=== PATIENT | female | born 1995 | race Caucasian/White ===

== ENCOUNTER 2021-03-08 09:46 | Emergency (ER) | payer BC ==
[2021-03-08] MEDS ORDERED: Ondansetron 4 MG/2 ML SDV IVPUSH ONE (10:56)
[2021-03-08] MEDS ORDERED: Sodium Chloride 0.9% 10 ML Syringe FLUSH PRN (10:56)
[2021-03-08] MEDS ORDERED: HYDROmorphone 0.5 MG/0.5 ML Syringe IVPUSH ONE (10:56)
--- NOTE | 2021-03-08 12:08 | EDM.PDOC ---
ED HPI GENERAL MEDICAL PROBLEM - General Chief Complaint: Abdominal Pain Stated Complaint: ABDOMINAL PAIN Time Seen by Provider: 03/08/21 10:34 Source of Information: Reports: Patient History Limitations: Reports: No Limitations - History of Present Illness INITIAL COMMENTS - FREE TEXT/NARRATIVE: 25-year-old female presents the emergency department today with complaints of lower back and hip pain for the past 2 weeks and development of lower abdominal pain which started last evening. She states this a.m. she became slightly nauseated. She states she has not had any vomiting or diarrhea. She states she did have the chills last evening. She denies any sore throat, headache, cough or shortness of breath. She states that she has had progressively worsening low back pain that started approximately 2 weeks ago. 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 She states she has continued to lift despite the low back discomfort which has progressively worsened. She also complains of back pain that radiates around into her hip flexors bilaterally. She states she went to see her chiropractor this morning who did do x-rays. Upon his evaluation she had mention she had abdominal discomfort so we sent her to the emergency department to rule out gallbladder or appendix issues. She denies any urinary symptoms such as frequency, urgency or burning. States she is otherwise healthy. States she has been taking Aleve for the discomfort however it has not helped much for her back pain. Pelvic Pain Score (Numeric/FACES): 8 - Related Data Allergies Allergy/AdvReac Type Severity Reaction Status Date / Time No Known Allergies Allergy Verified 03/08/21 10:30 Home Meds: Home Meds Hydrocodone/Acetaminophen [HYDROcodone-Acetaminophen 5-325 MG] 1 each PO Q4H PRN #14 tab 03/08/21 [Rx] Past Medical History Psychiatric History: Reports: Anxiety Social & Family History - Tobacco Use Tobacco Use Status *Q: Never Tobacco User ED ROS GENERAL - Review of Systems Review Of Systems: Comprehensive ROS is negative, except as noted in HPI. ED EXAM, GI/ABD - Physical Exam Exam: See Below Exam Limited By: No Limitations General Appearance: Alert, WD/WN, Moderate Distress Eyes: Bilateral: Normal Appearance Ears: Normal External Exam, Hearing Grossly Normal Nose: Normal Inspection Throat/Mouth: Normal Inspection, Normal Lips, Normal Voice, No Airway Compromise Head: Atraumatic, Normocephalic Neck: Normal Inspection, Supple Respiratory/Chest: No Respiratory Distress, Lungs Clear, Normal Breath Sounds, No Accessory Muscle Use, Chest Non-Tender Cardiovascular: Normal Peripheral Pulses, Regular Rate, Rhythm, No Edema, No Murmur GI/Abdominal Exam: Normal Bowel Sounds, Soft, No Distention, Tender (In all 4 quadrants with palpation) (Female) Exam: Deferred Rectal (Female) Exam: Deferred Back Exam: Normal Inspection, Vertebral Tenderness (Thoracic and lumbar spine) Extremities: Normal Inspection, Non-Tender, No Pedal Edema, Normal Capillary Refill, Limited Range of Motion (Limited passive range of motion to bilateral lower extremities due to severe low back discomfort) Neurological: Alert, Oriented, Normal Cognition Psychiatric: Normal Affect, Normal Mood Skin Exam: Warm, Dry, Intact, Normal Color, No Rash Course - Vital Signs Text/Narrative:: As stated above, patient presents with worsening low back discomfort. Patient was seen and evaluated by her chiropractor this morning and was sent to the emergency department due to complaints of abdominal discomfort. Physical exam reveals an uncomfortable appearing female. Heart lung sounds are unremarkable. Abdomen is appreciative of bowel tones in all 4 quadrants. Slight abdominal tenderness noted to all 4 quadrants with palpation. Patient lying flat on her back with passive range of motion on the right leg elicits significant low back pain on the left side radiating around into her hip flexors and lower abdomen. Passive range of motion of the left leg elicits severe pain to the low back radiating around the right side into the right hip flexor and abdomen. Will obtain lab studies to include CBC, CMP, magnesium level and a C-reactive protein. We also obtain a urinalysis with micro and culture if indicated. We will place a saline lock in the patient and medicate her with Dilaudid and Zofran for pain. Last Recorded V/S: Last Vital Signs Temp 98.4 F 03/08/21 10:27 Pulse 53 L 03/08/21 10:27 Resp 16 03/08/21 10:27 BP 107/68 03/08/21 10:27 Pulse Ox 98 03/08/21 10:27 - Orders/Labs/Meds Orders: Active Orders 24 hr Category Date Time Status Sodium Chloride 0.9% [Saline Flush] Med 03/08/21 10:56 Active 10 ml FLUSH ASDIRECTED PRN Saline Lock Insert [OM.PC] Stat Oth 03/08/21 10:56 Ordered Medication Orders Sodium Chloride (Sodium Chloride 0.9% 10 Ml Syringe) 10 ml FLUSH ASDIRECTED PRN PRN Reason: Keep Vein Open Last Admin: 03/08/21 12:39 Dose: 10 ml Documented by: PATO Labs: Laboratory Tests 03/08/21 03/08/21 03/08/21 Range/Units 11:37 11:37 11:37 WBC 7.91 (3.98-10.04) K/mm3 RBC 4.17 (3.98-5.22) M/mm3 Hgb 13.1 (11.2-15.7) gm/dl Hct 40.4 (34.1-44.9) % MCV 96.9 H (79.4-94.8) fl MCH 31.4 (25.6-32.2) pg MCHC 32.4 (32.2-35.5) g/dl RDW Std Deviation 39.9 (36.4-46.3) fL Plt Count 289 (182-369) K/mm3 MPV 9.2 L (9.4-12.3) fl Neut % (Auto) 74.9 H (34.0-71.1) % Lymph % (Auto) 13.5 L (19.3-51.7) % [place] % (Auto) 9.6 (4.7-12.5) % Eos % (Auto) 1.3 (0.7-5.8) Baso % (Auto) 0.6 (0.1-1.2) % Neut # (Auto) 5.92 (1.56-6.13) K/mm3 Lymph # (Auto) 1.07 L (1.18-3.74) K/mm3 [place] # (Auto) 0.76 H (0.24-0.36) K/mm3 Eos # (Auto) 0.10 (0.04-0.36) K/mm3 Baso # (Auto) 0.05 (0.01-0.08) K/mm3 Sodium 142 (136-145) mEq/L Potassium 4.5 (3.5-5.1) mEq/L Chloride 106 (98-107) mEq/L Carbon Dioxide 27 (21-32) mEq/L Anion Gap 13.5 (5-15) BUN 17 (7-18) mg/dL Creatinine 0.8 (0.55-1.02) mg/dL Est Cr Clr Drug Dosing TNP Estimated GFR (MDRD) > 60 (>60) mL/min BUN/Creatinine Ratio 21.3 H (14-18) Glucose 95 (70-99) mg/dL Calcium 8.7 (8.5-10.1) mg/dL Magnesium 1.7 L (1.8-2.4) mg/dL Total Bilirubin 0.4 (0.2-1.0) mg/dL AST 17 (15-37) U/L ALT 28 (14-59) U/L Alkaline Phosphatase 51 (46-116) U/L C-Reactive Protein <0.2 (<1.0) mg/dL Total Protein 6.5 (6.4-8.2) g/dl Albumin 4.0 (3.4-5.0) g/dl Globulin 2.5 gm/dL Albumin/Globulin Ratio 1.6 (1-2) Urine Color Yellow (Yellow) Urine Appearance Clear (Clear) Urine pH 7.0 (5.0-8.0) Ur Specific [place] 1.025 (1.005-1.030) Urine Protein 1+ H (Negative) Urine Glucose (UA) Negative (Negative) Urine Ketones Trace H (Negative) Urine Occult Blood Negative (Negative) Urine Nitrite Negative (Negative) Urine Bilirubin 1+ H (Negative) Urine Urobilinogen 1.0 (0.2-1.0) Ur Leukocyte Esterase Negative (Negative) U Hyaline Cast (Auto) 0-5 (0-5) /lpf Urine RBC Not seen (0-5) /hpf Urine WBC Not seen (0-5) /hpf Ur Squamous Epith Cells 5-10 H (0-5) /hpf Urine Bacteria Few (FEW) /hpf Urine Mucus Few (FEW) /hpf Meds: Medications Generic Name Dose Route Start Last Admin Trade Name Freq PRN Reason Stop Dose Admin Sodium Chloride 10 ml 03/08/21 10:56 03/08/21 12:39 Sodium Chloride 0.9% 10 Ml Syringe FLUSH 10 ml ASDIRECTED PRN Administration Keep Vein Open Discontinued Medications Generic Name Dose Route Start Last Admin Trade Name Freq PRN Reason Stop Dose Admin Hydromorphone HCl 0.5 mg 03/08/21 10:56 03/08/21 11:29 Hydromorphone 0.5 Mg/0.5 Ml Syringe IVPUSH 03/08/21 10:57 0.5 mg ONETIME ONE Administration Ondansetron HCl 4 mg 03/08/21 10:56 03/08/21 11:29 Ondansetron 4 Mg/2 Ml Sdv IVPUSH 03/08/21 10:57 4 mg ONETIME ONE Administration - Re-Assessments/Exams Free Text/Narrative Re-Assessment/Exam: 03/08/21 12:59 Hematology and chemistry are essentially unremarkable Urinalysis reveals 1+ protein, trace ketone, negative nitrite, 1+ bilirubin, negative leukocyte Estrace Discussed the lab results with the patient. At this time I do not feel any further testing is warranted. Patient states she did have some pain relief from the Dilaudid. I will discharge her [place] [facility] [place] also give her prescription for hydrocodone 1 tab every 6 hours for couple of days. She is agreeable to this plan. Departure - Departure Time of Disposition: 13:00 Disposition: Home, Self-Care 01 Condition: Good Clinical Impression: Low back pain Qualifiers: Chronicity: acute Back pain laterality: bilateral Sciatica presence: without sciatica Qualified Code(s): M54.50 - Low back pain, unspecified - Discharge Information Prescriptions: Hydrocodone/Acetaminophen [HYDROcodone-Acetaminophen 5-325 MG] 1 each PO Q4H PRN #14 tab PRN Reason: Pain (Moderate 4-6) Instructions: Acute Back Pain, Adult, Pain Medicine Instructions, [id number] Referrals: Kalli Gordon PA-C [Primary Care Provider] - Forms: ED Department Discharge, ED Return to Work/School Form Additional Instructions: You were seen in the emergency department today with complaints of severe low back pain and abdominal pain. Lab studies were completed which were essentially unremarkable. There is absolutely no sign of infection or inflammation that would indicate an acute abdominal issue. As discussed, suspect that abdominal discomfort is due to severe low back pain and radiation into the abdominal wall muscles. You were given pain medication while in the emergency department and this did seem to help somewhat. I have sent prescription for narcotic pain medication called hydrocodone to your pharmacy. You may take 1 tab every 4 hours as needed for pain. Recommend alternating this with ibuprofen 600 mg every 4 hours for the next couple of days. Recommend using ice 30 minutes at a time every 3 hours while awake. Recommend that while taking the narcotic pain medication you also take a stool softener as hydrocodone can cause significant constipation issues. Be sure you are also drinking plenty of fluids and eating a high-fiber diet. I have given you a referral for physical therapy as well. Should your condition worsen or change, do not hesitate returning to the [facility] department. Sepsis Event Note (ED) - Evaluation Sepsis Screening Result: No Definite Risk - Focused Exam Vital Signs: Vital Signs Temp Pulse Resp BP Pulse Ox 03/08/21 10:27 98.4 F 53 L 16 107/68 98 - My Orders Last 24 Hours: My Active Orders 03/08/21 10:56 Sodium Chloride 0.9% [Saline Flush] 10 ml FLUSH ASDIRECTED PRN Saline Lock Insert [OM.PC] Stat - Assessment/Plan Last 24 Hours: My Active Orders 03/08/21 10:56 Sodium Chloride 0.9% [Saline Flush] 10 ml FLUSH ASDIRECTED PRN Saline Lock Insert [OM.PC] Stat
== END 2021-03-08 13:42 | disposition home or self-care (01) ==
LOC: JD.ED 09:46
DX: M54.50 Low back pain, unspecified (principal)
CPT/HCPCS: 36415; 80053; 81001; 83735; 85025; 86140; 96374; 96375; 99283; J1170; J2405